=== PATIENT | female | born 1990 | race Caucasian/White ===

== ENCOUNTER → 2020-12-03 16:11 | Outpatient (CLI) | payer OTHER, SELFPAY ==
--- NOTE | ~2020-12-03 | US_ITS ---
EXAMINATION: US OB >= 14 weeks Fetus DATE: 12/03/2020 16:52 INDICATION: survey TECHNIQUE: Multiple obstetric sonographic images performed. FINDINGS: No prior studies for comparison. There is a single living fetus in vertex presentation. The placenta is posterior without placenta pr evia. Placental margin is 3.5 cm to the cervix. Amniotic fluid volume is normal. cardiac activity and movement is noted with a heart rate of 143 beats per minute. The following anatomy was identified as normal: 4 chamber heart 3 vessel cord kidneys urinary bladder stomach spine diaphragm ventricles cisterna magna cerebellum The cavum septum lucidum, ventricular outflow tracts and cord insertion are not adequately visualized . Recommend attention to the structures on subsequent studies. The following biometric data were obtained: BPD: 44mm corresponds to gestational age 19 weeks 3 days. Head circumference: 161 mm corresponds to gestational age 19 weeks 0 days. Abdominal circumference: 140 mm corresponds to gestational age 19 weeks 2 days. Femur length: 28 mm corresponds to gestational age 18 weeks 5 days. Head circumference to abdominal circumference ratio: 1.16 (normal range for expected gestational age is 1.09-1.26). Estimated weight: 271 grams +/- 41 grams using Hadlock method. IMPRESSION: 1: Single living intrauterine with an estimated gestational age of 19weeks 1days by current ultrasound measurements, with an EDC of 04/28/2021 in vertex presentation. 2. The cavum septum lucidum, ventricular outflow tracts and cord insertion are not adequately visual ized. Recommend attention to the structures on subsequent studies. Otherwise, unremarkable surv ey. Reviewed, dictated and finalized at location B. PRESS OPERATOR IMPRESSION: 1: Single living intrauterine with an estimated gestational age of 19 weeks 1days by current ultrasound measurements, with an EDC of 04/28/2021 in ve rtex presentation. 2. The cavum septum lucidum, ventricular outflow tracts and cord insertion are not adequately visualized. Recommend attention to the structures on subsequent studies. Otherwise, unremarkable survey.
== END ==
PROVIDERS: Visit Provider Obstetrics & Gynecology Gynecology
DX: Z36.9 Encounter for antenatal screening, unspecified (principal); Z3A.19 19 weeks gestation of pregnancy
CPT/HCPCS: 76805

== ENCOUNTER → 2020-12-30 10:54 | Outpatient (CLI) | payer OTHER, SELFPAY ==
--- NOTE | ~2020-12-30 | US_ITS ---
EXAMINATION: US OB follow up EXAM DATE: 12/30/2020 11:29 INDICATION: f/u anatomy . 2nd trimester. TECHNIQUE: Pelvic obstetrical transabdominal sonogram was performed by a technologist. There are mu ltiple grayscale and Doppler images available for interpretation. Comparison is made to prior examina tion from 12/03/2020. FINDINGS: There is a single fetus identified in vertex presentation with a heart rate of 149 beats pe r minute. The placenta is located in the posterior position. Placental margin to internal cervical os distance is 3.8 cm. There is no sonographic evidence of retroplacental hemorrhage identified. There is subjectively expected amount of amniotic fluid. BIOMETRIC DATA: Biparietal diameter (BPD): 5.7 cm ----------------> 23 weeks 3 days. Head circumference (HC): 21.1 cm ----------------> 23 weeks 1 day. Abdominal circumference (AC): 18.0 cm ----------> 22 weeks 6 days. Femur length (FL): 4.1 cm --------------------------> 23 weeks 1 day. These measurements are concordant. HC/AC ratio is 1.17 (The 5th -- 95th percentile range is 1.0 5-1. Estimated weight is 556 g +/- 83 g. This is the 59th percentile when the currently reported cl inical gestation age 22 weeks 5 days, clinical estimated date of delivery (EMMANUEL-OPE) 04/30/2021 is used. estimated gestational age based on measurements from this exam is 23 weeks 1 day, with an hector mated date of delivery (EMMANUEL-AUA) 04/27. ANATOMIC SURVEY: The following anatomy is identified and is sonographically normal in appearance: Cerebral ventricles CTL-spine Heart Diaphragm Stomach Kidneys Bladder Cord insertion IMPRESSION: 1. Single fetus in vertex presentation with heart rate 149 beats per minute. 2. Estimated weight of 5 x 6 grams, 59th percentile using the currently reported clinical gest ation age of 22 weeks 5 days, EMMANUEL(OPE) 04/30. 3. Completed anatomic survey, visualization of previously poorly seen. Reviewed, dictated and finalized at location B. R PLANT ENGINEER IMPRESSION: 1. Single fetus in vertex presentation with heart rate 149 beats per minute. 2. Estimated weight of 5 x 6 grams, 59th percentile using the currently reported clinical gestation age of 22 weeks 5 days, EMMANUEL(OPE) 04/30. 3. Completed anatomic survey, visualization of previously poorly seen.
== END ==
PROVIDERS: Visit Provider Obstetrics & Gynecology Gynecology
DX: Z36.2 Encounter for other antenatal screening follow-up (principal); Z3A.00 Weeks of gestation of pregnancy not specified
CPT/HCPCS: 76816

== ENCOUNTER 2021-01-31 09:35 | Outpatient (RCR) | payer OTHER, SELFPAY ==
[2021-01-31 11:29] LABS: Hematocrit 36.1 % (37.0-47.0); Hemoglobin 11.8 g/dL (12.0-15.0)
[2021-01-31 11:51] LABS: Glucose 1 Hour PP 50gm Dose 105 mg/dL
[2021-01-31 12:10] LABS: Vitamin D 25 Hydroxy 46.7 ng/mL
[2021-01-31 12:28] LABS: HIV 1/2 Ab P24 Ag Result Negative (Negative)
[2021-02-01] MEDS: RHO(D) IMMUNE GLOBULIN 300 MCG/2 ML SYRINGE IM (08:50)
== END 2021-05-01 23:59 | disposition home or self-care (01) ==
LOC: ANHLAB 09:35
PROVIDERS: Visit Provider Obstetrics & Gynecology Gynecology
DX: Z29.13 Encounter for prophylactic Rho(D) immune globulin (principal); Z11.4 Encounter for screening for human immunodeficiency virus [HIV]; O36.0920 Maternal care for other rhesus isoimmunization, second trimester, not applicable or unspecified; Z3A.26 26 weeks gestation of pregnancy
CPT/HCPCS: 36415; 82306; 82947; 85014; 85018; 85461; 86703; 90384; 96372; G0432; J2790

== ENCOUNTER → 2021-02-12 11:00 | Outpatient (CLI) | payer OTHER, SELFPAY ==
--- NOTE | ~2021-02-12 | US_ITS ---
EXAMINATION: US OB follow up DATE: 02/12/2021 11:44 INDICATION: Assess growth with large fetus for estimated gestational age during early third [facility] . TECHNIQUE: Real-time ultrasound of the pelvis was performed. The interpreting radiologist was not pre sent for the study. COMPARISON: 12/30/2020 FINDINGS: There is a single living fetus in vertex presentation. The placenta is posterior and not low-lying. heart rate is 139 beats per minute (bpm). The amniotic fluid index is cm, which is normal. Norm al amniotic fluid index of 16.8 cm (5th%-95%: 9.2-23.1 cm at 29 weeks estimated gestational age) The following biometric data were obtained: BPD: 7.6 cm -> 30 weeks 3 days Head circumference: 28.0 cm -> 20 weeks 4 days Abdominal circumference: 27.4 cm -> 31 weeks 3 days Femur length: 6.1 cm -> 31 weeks 6 days These measurements are concordant. Head circumference to abdominal circumference ratio: 1.02 (normal range 0.96-1.17). Estimated weight: 1755 g (+/-) 263 g. or 3 lbs. 14 oz. (+/-) 9 oz. IMPRESSION: 1. Single living fetus in vertex presentation with heart rate of 139 bpm. 2. Normal amniotic fluid index of 16.8 cm. 3. Estimated weight is >97th percentile by Hadlock criteria when 04/30/2021 is used as the estima louie date of delivery (EMMANUEL). This is significantly increased since the prior study at which time the e stimated weight was 59th percentile utilizing the same EMMANUEL. Please correlate with clinical info rmation or earlier ultrasounds for most accurate EMMANUEL. Reviewed, dictated and finalized at location A. IMPRESSION: 1. Single living fetus in vertex presentation with heart rate of 139 bpm. 2. Normal amniotic fluid index of 16.8 cm. 3. Estimated weight is >97th percentile by Hadlock criteria when 04/30/2021 is used as the estimated date of delivery (EMMANUEL). This is significantly increas ed since the prior study at which time the estimated weight was 59th perc entile utilizing the same EMMANUEL. Please correlate with clinical information or ea rlier ultrasounds for most accurate EMMANUEL.
== END ==
PROVIDERS: Visit Provider Obstetrics & Gynecology Gynecology
DX: O36.63X0 Maternal care for excessive fetal growth, third trimester, not applicable or unspecified (principal); Z3A.25 25 weeks gestation of pregnancy
CPT/HCPCS: 76816

== ENCOUNTER 2021-03-03 09:59 | Outpatient (RCR) | payer OTHER, SELFPAY ==
[2021-01-17 13:59] VITALS: BP 129/79; PULSE 90
[2021-03-03 10:34] VITALS: BP 142/76; PULSE 108
== END 2021-04-17 23:59 | disposition home or self-care (01) ==
LOC: ANHOBOP 09:59
PROVIDERS: Visit Provider Obstetrics & Gynecology
DX: O36.8130 Decreased fetal movements, third trimester, not applicable or unspecified (principal); Z3A.31 31 weeks gestation of pregnancy
CPT/HCPCS: 59025

== ENCOUNTER → 2021-04-01 15:52 | Outpatient (CLI) | payer OTHER, SELFPAY ==
--- NOTE | ~2021-04-01 | US_ITS ---
EXAMINATION: US OB follow up DATE: 04/01/2021 16:22 INDICATION: Estimated size greater than expected for estimated [facility] age [facility] TECHNIQUE: Real-time ultrasound of the pelvis was performed. The interpreting radiologist was not pre sent for the study. COMPARISON: 02/12/2021 FINDINGS: There is a single living fetus in vertex presentation. The placenta is posterior fundal and not low- lying. heart rate is 133 beats per minute (bpm). The amniotic fluid index is 15.8 cm, which is normal (5th%-95%: 7.9-24.9 cm at 35 weeks estimated gestational age). The following biometric data were obtained: BPD: 9.3 cm -> 37 weeks 6 days Head circumference: 33.3 cm -> 38 weeks 0 days Abdominal circumference: 32.5 cm -> 36 weeks 3 days Femur length: 7.0 cm -> 36 weeks 0 days These measurements are concordant. Head circumference to abdominal circumference ratio: 1.03 (normal range 0.92-1.05). Estimated weight: 2986 g (+/-) 448 g or 6 lbs. 9 oz. (+/-) 1 lbs. 0 oz. IMPRESSION: 1. Single living fetus in vertex presentation with heart rate of 178 bpm. 2. Normal amniotic fluid index of 15.8 cm. 3. Estimated weight is 72nd percentile by Hadlock criteria when 04/30/2021 is used as the estimat ed date of delivery (EMMANUEL). Please correlate with clinical information or earlier ultrasounds for most accurate EMMANUEL. Reviewed, dictated and finalized at location A. IMPRESSION: 1. Single living fetus in vertex presentation with heart rate of 178 bpm. 2. Normal amniotic fluid index of 15.8 cm. 3. Estimated weight is 72nd percentile by Hadlock criteria when 04/30/2021 is used as the estimated date of delivery (EMMANUEL). Please correlate with clinical information or earlier ultrasounds for most accurate EMMANUEL.
== END ==
PROVIDERS: Visit Provider Obstetrics & Gynecology Gynecology
DX: O36.63X0 Maternal care for excessive fetal growth, third trimester, not applicable or unspecified (principal); Z3A.00 Weeks of gestation of pregnancy not specified
CPT/HCPCS: 76816

== ENCOUNTER 2021-04-25 04:51 | Inpatient (IN) | payer OTHER, SELFPAY ==
[2021-04-25] VITALS (235 sets, daily range): BP systolic 98–162; BP diastolic 56–110; PULSE 85–142; RESP 16–18; TEMP 36.4–36.9; O2SAT 93–100; BMI 39.7
[2021-04-25 05:46] LABS: Basophils Percent Auto 0.3 % (0.2-1.2); Eosinophils Absolute Auto 0.1 K/mm3 (0-0.3); Eosinophils Percent Auto 1.1 % (0-4.4); Hemoglobin 12.6 g/dL (12.0-15.0); Immature Granulocyte Absolute 0.04 K/mm3 (0.00-0.031); Immature Granulocyte Percent A 0.3 % (0-0.5); Lymphocytes Absolute Auto 1.52 K/mm3 (0.9-3.2); Lymphocytes Percent Auto 13.2 % (18.3-44.2); Mean Corpuscular HGB Conc 33.2 g/dl (32-36); Mean Corpuscular Volume 90.5 fl (80-100); Mean Platelet Volume 11.3 fl (7.4-10.4); Monocytes Absolute Auto 0.8 K/mm3 (0.1-0.6); Monocytes Percent Auto 7.1 % (2.6-8.5); Platelet Count Result 210 k/mm3 (150-375); White Blood Count 11.5 K/mm3 (4.5-10.0)
[2021-04-25] MEDS: AMPICILLIN 2 GM/NS 100 ML 2 GM/100 ML BAG IVPB (05:47)
[2021-04-25] MEDS: LACTATED RINGERS 1,000 ML 125 ML IV CONT ×4 (05:48→22:01)
[2021-04-25] MEDS: OXYTOCIN 30 UNITS/NS 500 ML 30 UNITS/500 ML BAG 6 UNITS IV CONT ×2 (05:49→23:39)
--- NOTE | 2021-04-25 06:02 | LDADM ---
This patient, Barbara Reddy, was admitted to Labor/Delivery/Recovery 104 on 04/25/21 at 04:51. Plans for labor, pain management and were discussed with patient. Patient/family oriented to hospital policies and general routines including ID bracelet, bed and alarms, visiting hours, pain management, procedures, bathroom and other care routines, personal items, smoking policy, room service/diet and guest tray routines, infant security routines, and visiting hours. Patient/Family are encouraged to report perceived risks to care and to ask questions if they do not understand what they are told or what they should do. See OBIX for further documentation.
--- NOTE | 2021-04-25 06:24 | P.PNAN_ITS ---
Anes - Eval Pre Procedure Procedure: Labor epidural Date/Time: 04/25/21 06:24 Surgeon: ruth Preop Diagnosis: pain during labor Pre Op Diagnosis: Induction Patient Data Age: 31 Gender: F Height: 1.63 m Weight: 105 kg Last Vital Signs Pulse 97 04/25/21 06:15 BP 153/90 H 04/25/21 06:15 Allergies Allergy/AdvReac Type Severity Reaction Status Date / Time No Known Allergies Allergy Verified 04/12/21 13:38 Home Medications Medication Instructions Recorded Confirmed Type aspirin [Aspirin Low Dose] 81 mg PO DAILY 04/12/21 04/12/21 History ergocalciferol (vitamin D2) 1,250 mcg PO WEEKLY 04/12/21 04/12/21 History [Vitamin D2] metformin 500 mg PO BID 04/12/21 04/12/21 History prenat.vits,em,bys-rich-iguxl 1 tablet PO DAILY 04/12/21 04/12/21 History [ #2] Laboratory Tests 04/25/21 04/25/21 05:35 05:35 WBC 11.5 K/mm3 H K/mm3 (4.5-10.0) RBC 4.20 M/mm3 M/mm3 (4.2-5.4) Hgb 12.6 g/dL g/dL (12.0-15.0) Hct 38.0 % % (37.0-47.0) MCV 90.5 fl fl (80-100) MCH 30.0 pg pg (26-34) MCHC 33.2 g/dl g/dl (32-36) RDW 15.0 % H % (11.5-14.5) Plt Count 210 k/mm3 k/mm3 (150-375) MPV 11.3 fl H fl (7.4-10.4) Immature Gran % (Auto) 0.3 % % (0-0.5) Neut % (Auto) 78.0 % H % (45.5-73.1) Lymph % (Auto) 13.2 % L % (18.3-44.2) [place] % (Auto) 7.1 % % (2.6-8.5) Eos % (Auto) 1.1 % % (0-4.4) Baso % (Auto) 0.3 % % (0.2-1.2) Lymph # (Auto) 1.52 K/mm3 K/mm3 (0.9-3.2) [place] # (Auto) 0.8 K/mm3 H K/mm3 (0.1-0.6) Eos # (Auto) 0.1 K/mm3 K/mm3 (0-0.3) Baso # (Auto) 0.0 K/mm3 K/mm3 (0.0-0.1) Abs Immat Gran (auto) 0.04 K/mm3 H K/mm3 (0.00-0.031) Absolute Neuts (auto) 9.0 K/mm3 H K/mm3 (1.3-6.7) Absolute Nucleated RBC 0.0 K/mm3 K/mm3 (0.0-0.012) Nucleated RBC % 0.0 % % (0.0-0.2) RPR Pending Patient hx anesthesia problems: none Family hx anesthesia problems: none PMFSH Past Medical History Medical History (Updated 04/25/21 @ 06:26 by Karishma Wu CRNA) IUP (intrauterine ), incidental Obesity (BMI 30-39.9) Family History Family History (Updated 04/12/21 @ 13:43 by Jeancarlos Méndez RN) Father Bladder cancer Diabetes mellitus Mother Cervical cancer Diabetes mellitus Grandparent Breast cancer in female Diabetes mellitus Social History Social History Smoking status: Never smoker Substance use: never Spiritual care concerns: No Exam Day of Procedure 04/25/21 06:24
--- NOTE | 2021-04-25 08:11 | WPDOBADMIT ---
Obstetrics - Admit Note Admission Note: record reviewed. No pertinent additions to the history and/or any subsequent changes in the physical findings that are not consistent with the expected course of the were found. AROm clear fluid 1//-3 vertex Additions to the history and/or subsequent changes in the physical findings follow. None.
[2021-04-25] MEDS: AMPICILLIN 1 GM/NS 50 ML 1 GM/50 ML BAG IVPB ×4 (09:55→23:34)
[2021-04-25] MEDS: LABETALOL HCL 100 MG TABLET PO (10:26)
[2021-04-25] MEDS: fentaNYL CITRATE INJ (*CRX) 100 MCG/2 ML VIAL IV PUSH (11:04)
[2021-04-25 11:50] LABS: Rapid Plasma Reagin Non-Reactive (NonReactive)
[2021-04-26] VITALS (130 sets, daily range): BP systolic 77–168; BP diastolic 32–113; PULSE 86–201; RESP 16–18; TEMP 36.4–37.3; O2SAT 83–100
[2021-04-26] MEDS: ONDANSETRON INJ 4 MG/2 ML VIAL IV PUSH (00:11)
[2021-04-26] MEDS: AMPICILLIN 1 GM/NS 50 ML 1 GM/50 ML BAG IVPB (03:58)
[2021-04-26] MEDS: OXYTOCIN 30 UNITS/NS 500 ML 30 UNITS/500 ML BAG 999 UNITS IV CONT (06:45)
--- NOTE | 2021-04-26 06:52 | PM.OBPRVD ---
OB - Delivery Note Procedure Delivery date: 04/26/21 Procedure: events: Labor Induction Intrapartal events: Prolonged Labor > 20 hours and Prolonged Active Phase Induction method: AROM and per pitocin protocol Delivery monitor: external FHT and internal uterine Route of delivery: Laceration Description: Perineal - 2nd Degree Delivery repair: vicryl (3-0) Specimen: No Quantitative Blood Loss (ml): 150 Anesthesia type: Local Disposition: floor Narrative: Patient labor stalled at 5 cm for several hours and decided to proceed with csection after [address] to hospital, patient felt more pressure and was checked and 6 cm. Allowed patient to continue labor and progressed slowly to complete. No shoulder dystocia. head with 5 cm caput on side of head. [place] Baby Date of : 04/26/21 Weeks of gestation at delivery: 39 gender: Female Weight (pounds): 8 Weight (ounces): 10 presentation: vertex position: Left Occiput Anterior Placenta delivery description: Spontaneous cord vessel description: 3 Vessels score one minute: 7 score five minutes: 9
--- NOTE | 2021-04-26 07:00 | PM.OBDSVD ---
DS: Admitting Diagnosis Admitting Diagnosis Admitting Diagnosis: IUP 39 DS: Discharge Diagnosis Discharge Diagnosis (1) 39 weeks gestation of : Code(s): Z3A.39 - 39 weeks gestation of Status: Acute (2) (normal spontaneous vaginal delivery): Code(s): O80 - Encounter for full-term uncomplicated delivery Status: Acute (3) PIH ( induced hypertension): Code(s): O13.9 - Gestational [-induced] hypertension without significant proteinuria, unspecified trimester Status: Acute OB - DS: Summary OB Procedures : Ultrasound OB Procedures Intrapartum: Spontaneous Vag Delivery OB Procedures: : None Peripartum Data Delivery Method: Natural Vaginal Laceration Description: Perineal - 2nd Degree complications: none Status at Discharge Functional status at discharge: independent ambulation Overall status at discharge: patient is progressing back to baseline Time Spent with Patient Time attestation: Total time spent providing and/or coordinating discharge services: DS: Data Data Completed and Pending Labs on day of discharge: Labs from last 24 hours 04/25/21 04/25/21 05:35 05:35 RPR Non-reactive Blood Type O Negative Antibody Screen Negative Discharge Plan Discharge Attending physician on discharge: Claudia Gann Discharging Clinician: Heber Michaels Patient Disposition: Home, Self-Care Activity: may shower and pelvic rest Diet: regular Patient Instructions: Antibiotic Form Stand Alone Forms: General Discharge Information Follow-up/Referrals: Claudia Gann MD [Physician] - 6 Weeks Discharge Medications: New labetalol 100 mg Tablet 200 mg PO Q12HR Qty: 60 RF: 1 Continued metformin 500 mg Tablet 500 mg PO BID RF: 0 ergocalciferol (vitamin D2) [Vitamin D2] 1,250 mcg (50,000 unit) Capsule 1,250 mcg PO WEEKLY RF: 0 prenat.vits,em,szy-fpay-zjecr Tablet 1 tablet PO DAILY RF: 0 Discontinued aspirin [Aspirin Low Dose] 81 mg Tablet,Delayed Release (Dr/Ec) 81 mg PO DAILY RF: 0 Date of admission: 04/25/21 04:51 Primary Care Provider: PHYSICIAN,CERTIFIED PHLEBOTOMY TECHNICIAN Admitting Provider: Claudia Gann Attending physician on admission: Claudia Gann Condition: Stable
[2021-04-26] MEDS: OXYTOCIN 30 UNITS/NS 500 ML 30 UNITS/500 ML BAG 125 UNITS IV CONT (07:23)
[2021-04-26] MEDS: IBUPROFEN 600 MG TABLET PO ×2 (08:07→15:38)
[2021-04-26] MEDS: WITCH HAZEL 40 PADS 1 PAD TOPICAL (09:29)
[2021-04-26 09:30] LABS: Hemoglobin 12.3 g/dL (12.0-15.0); Mean Corpuscular HGB Conc 32.4 g/dl (32-36); Mean Corpuscular Hemoglobin 29.4 pg (26-34); Mean Corpuscular Volume 90.7 fl (80-100); Mean Platelet Volume 11.3 fl (7.4-10.4); Platelet Count Result 192 k/mm3 (150-375); Red Blood Count 4.19 M/mm3 (4.2-5.4); Red Cell Distribution Width 15.2 % (11.5-14.5); White Blood Count 24.2 K/mm3 (4.5-10.0)
[2021-04-26] MEDS: LABETALOL HCL 100 MG TABLET 200 MG PO ×2 (09:44→21:07)
[2021-04-26 10:18] LABS: Alanine Aminotransferase 17 U/L (4-35); Alkaline Phosphatase 142 U/L (38-126); Anion Gap 7 mmol/L (8-16); Aspartate Amino Transferase 34 U/L (14-36); Bilirubin,Total 0.5 mg/dL (0.2-1.3); Blood Urea Nitrogen 9 mg/dL (7-17); Calcium 9.2 mg/dL (8.4-10.2); Carbon Dioxide 21 mmol/L (22-30); Chloride 107 mmol/L (98-107); Estimated CRCL calculation 105 ml/min; Estimated Glomerular Filt Rate > 60; Glucose 135 mg/dL (65-105); Potassium 3.9 mmol/L (3.4-5.0); Sodium 135 mmol/L (137-145); Uric Acid 7.3 mg/dL (2.5-7.5)
--- NOTE | 2021-04-26 12:46 | OBPPTRN ---
0950-Patient transferred to post room #280 via wheelchair. Support person present. Oriented to unit, room, information board, rooming in, admission packet and security measures. Patient verbalizes understanding.
[2021-04-27 03:30] VITALS: BP 118/66; PULSE 98; RESP 16; TEMP 36.4; O2SAT 95
[2021-04-27 04:10] LABS: Hematocrit 32.7 % (37.0-47.0); Hemoglobin 10.4 g/dL (12.0-15.0)
[2021-04-27 07:25] VITALS: BP 109/55; PULSE 102; RESP 16; TEMP 36.8; O2SAT 100
--- NOTE | 2021-04-27 07:47 | PM.OBPNVD ---
OB - PN: Subj Subjective Date/time seen: 04/27/21 07:47 doing well some mild back pain otherwise no Headaches or vision changes OB - PN: Obj Data Labs CBC & Chem 7: 04/27/21 03:41 04/26/21 09:17 Labs: Laboratory Results - last 24 hr 04/26/21 04/26/21 04/27/21 09:17 09:17 03:40 WBC 24.2 H RBC 4.19 L Hgb 12.3 Hct 38.0 MCV 90.7 MCH 29.4 MCHC 32.4 RDW 15.2 H Plt Count 192 MPV 11.3 H Sodium 135 L Potassium 3.9 Chloride 107 Carbon Dioxide 21 L Anion Gap 7 L BUN 9 Creatinine 0.80 Estim Creat Clear Calc 105 Estimated GFR > 60 Glucose 135 H Uric Acid 7.3 Calcium 9.2 Total Bilirubin 0.5 AST 34 ALT 17 Alkaline Phosphatase 142 H Total Protein 6.0 L Albumin 3.0 L Blood Type O Negative Antibody Screen TNP Screen Negative Baby's Blood Type A pos Baby's DANIELA Negative Doses of RhIg Required 1 04/27/21 03:41 WBC RBC Hgb 10.4 L Hct 32.7 L MCV MCH MCHC RDW Plt Count MPV Sodium Potassium Chloride Carbon Dioxide Anion Gap BUN Creatinine Estim Creat Clear Calc Estimated GFR Glucose Uric Acid Calcium Total Bilirubin AST ALT Alkaline Phosphatase Total Protein Albumin Blood Type Antibody Screen Screen Baby's Blood Type Baby's DANIELA Doses of RhIg Required OB - PN A/P Assessment and Plan (1) (normal spontaneous vaginal delivery): Code(s): O80 - Encounter for full-term uncomplicated delivery Status: Acute Assessment and Plan: continue with pp care (2) Obesity (BMI 30-39.9): Code(s): E66.9 - Obesity, unspecified Status: Acute (3) PIH ( induced hypertension): Code(s): O13.9 - Gestational [-induced] hypertension without significant proteinuria, unspecified trimester Status: Acute Assessment and Plan: bps improved with labetalol will decrease dose to 100 mg po twice a day Time Spent With Patient Time: Total time spent is greater than 50% in coordination of care (as documented) at patient's floor/unit and/or counseling patient: Exam Narrative: Exam Narrative: ff @ umbilicus
[2021-04-27 08:52] VITALS: PULSE 102
[2021-04-27] MEDS: metFORMIN HCL 500 MG TABLET PO ×2 (08:52→17:16)
[2021-04-27] MEDS: LABETALOL HCL 100 MG TABLET PO ×2 (08:52→23:59)
[2021-04-27] MEDS: MULTIVIT/MIN/PREN/FOL AC/IRON TABLET 1 TAB PO (08:52)
--- NOTE | 2021-04-27 10:00 | WPDANLDPN2 ---
Anes-Prog Note L&D Date/Time: 04/27/21 10:00 Comfortable throughout: labor Neuraxial method: epidural Epidural/Spinal procedure site: clean & non-tender Neuro status: Neuro function grossly intact. Cardiovascular status: normal Respiratory status: normal Airway patency: baseline Mental status: baseline Post-Op hydration status: normal Vital Signs: Last Vital Signs Temp 36.8 C 04/27/21 07:25 Pulse 102 H 04/27/21 08:52 Resp 16 04/27/21 07:25 BP 109/55 L 04/27/21 07:25 Pulse Ox 100 04/27/21 07:25 Pain score (VAS): 0/10. Patient resting up to bedside chair at time of assessment, appears comfortable. Support person at bedside. I/O: Intake & Output 04/26/21 04/27/21 04/27/21 23:59 07:59 15:59 Intake Total 600 100 120 Output Total 600 480 Balance 0 -380 120 Post-procedural complaints: none Patient feedback: Patient satisfied with anesthetic care.
[2021-04-27] MEDS: RHO(D) IMMUNE GLOBULIN 300 MCG/2 ML SYRINGE IM (14:30)
[2021-04-27 14:48] VITALS: BP 116/80; PULSE 104; RESP 16; TEMP 36.9; O2SAT 100
[2021-04-27] MEDS: DOCUSATE SODIUM 100 MG CAPSULE PO (17:16)
[2021-04-27 19:25] VITALS: BP 140/82; PULSE 108; RESP 16; TEMP 36.9; O2SAT 98
[2021-04-27 23:55] VITALS: BP 114/48; PULSE 102; RESP 16; TEMP 37; O2SAT 99
[2021-04-28] MEDS: IBUPROFEN 600 MG TABLET PO ×2 (00:11→07:36)
--- NOTE | 2021-04-28 00:23 | PC.NURSE ---
04/28/2021 I entered mother's room and she had baby in the plastic bassinet removed from the bassinet's cart lying on her lap with baby inside. I cautioned mother not to pick baby up this way, as it increases the chances of dropping baby. I placed baby and the top part of the bassinet back on the bassinet cart and reinforced to mother to please call out and I will be more than happy to get baby out of the bassinet and hand her the baby. Mother agreed and continued with, Yes, and I can always wake him (referring to her ) too. I told her I would be available all night to hand her baby.
[2021-04-28 00:25] VITALS: BP 136/79
[2021-04-28 04:20] VITALS: BP 136/90; PULSE 94; RESP 16; O2SAT 97
[2021-04-28] MEDS: MULTIVIT/MIN/PREN/FOL AC/IRON TABLET 1 TAB PO (07:35)
[2021-04-28] MEDS: DOCUSATE SODIUM 100 MG CAPSULE PO (07:36)
[2021-04-28] MEDS: metFORMIN HCL 500 MG TABLET PO (07:38)
--- NOTE | 2021-04-28 07:50 | PC.NURSE ---
Mother called out for assist with feeding. Mother reports infant was not eagerly first 12 hours, she began supplementing and pumping. is more awake the last 12 hours and will eagerly latch, feedings are from 10-30 minutes. Mother still has concerns is not feeding well enough to stop supplementation due to fussiness after . Mother will continue to supplement until her milk is in. Mother's plan is to discontinue supplement once her milk is in. Discussed milk supply, colostrum transitioning to breastmilk for first time mother. Discussed infant is now receiving larger volumes of intake with supplementation and may not be satisfied until milk transitions in to the amount infant is accustom to as intake. Suggested mother put infant to both breasts each feeding then pace feed supplement and stop when infant is satisfied. Mother has a double electric pump for home use. Advised to continue to pump if infant does not have an effective feeding every three hours. Reviewed infant feeding cues, frequencies, duration of feedings, feeding elimination flow sheet, and signs of adequate intake. Demonstrated stimulation techniques to wake infant for feeding. Reviewed positioning/alignment in cross cradle, holding breast in ?U? hold and guided asymmetrical latch on. Infant able to latch correctly. nursed eagerly with steady draws for bursts followed by long pausing occasional swallowing noted. Reviewed signs of a correct latch, effective nursing and suck swallow ratio. Suggested mother stimulate while feeding to increase stimulate, increase intake and to assist with maintaining deep latch. Discussed the difference of effective vs ineffective nursing and the importance of stimulation to keep infant awake nursing effectively. would slip to shallow latch, mother reports tenderness. Demonstrated how to adjust latch more deeply while feeding. Mother reports she can feel change in latch and has no tenderness. Nipple care reviewed of lanolin after feedings, warm compresses as needed. Mother is able to independently latch with appropriate positioning/alignment. She denies any nipple discomfort, is feeding as required and waking to feed if needed. Infant has had several effective feedings in the past 24 hours followed with supplementation, and is currently meeting outcomes for weight, output, jaundice and feeding frequencies. Mother states she feels confident to continue current feeding plan at home at home. Reviewed transition to breast milk, signs of adequate intake, and engorgement/relief. Instructed to call ICP if intake/output less than required. Reviewed regular medications mother is taking. Information provided per Fl[place]. Reviewed community resources on the [facility] website and in the Mom/Baby guide. Information on outpatient services provided. Mother has no further questions at this time.
--- NOTE | 2021-04-28 08:07 | PM.OBPNVD ---
OB - PN: Subj Subjective Date/time seen: 04/28/21 08:07 Patient comments: no complaints and pain well controlled baby status: doing well and nursing well OB - PN: Obj Data Labs CBC & Chem 7: 04/27/21 03:41 04/26/21 09:17 Labs: Laboratory Results - last 24 hr 04/27/21 03:40 Blood Type O Negative Antibody Screen TNP Screen Negative Baby's Blood Type A pos Baby's DANIELA Negative Doses of RhIg Required 1 OB - PN A/P Plan day: 2 Plan: routine care, discharge home and follow up 6 weeks Time Spent With Patient Time: Total time spent is greater than 50% in coordination of care (as documented) at patient's floor/unit and/or counseling patient: Exam Narrative: Exam Narrative: fundus firm,nt
[2021-04-28 09:00] VITALS: PULSE 88
[2021-04-28] MEDS: LABETALOL HCL 100 MG TABLET PO (09:00)
--- NOTE | 2021-04-28 11:18 | PC.NURSE ---
0900 Patient viewed the discharge video Mother & Baby Care, The First Two Weeks . Patient was given the opportunity and encouraged to ask questions. Patient verbalized understanding of information shared and has been given the mother/baby guide for home reference.
[2021-04-29 07:49] VITALS: BP 139/71; PULSE 101; RESP 20; TEMP 36.9; O2SAT 100
== END 2021-04-28 11:00 | disposition home or self-care (01) | DRG 807 ==
LOC: ANHLDR 04-26 07:04 → ANHOB2 04-26 10:05
PROVIDERS: Obstetrics & Gynecology; Admitting Provider Obstetrics & Gynecology Gynecology; Visit Provider Obstetrics & Gynecology Gynecology
DX: O99.824 Streptococcus B carrier state complicating childbirth (principal); Z37.0 Single live birth; Z3A.39 39 weeks gestation of pregnancy; O36.8330 Maternal care for abnormalities of the fetal heart rate or rhythm, third trimester, not applicable or unspecified; O70.1 Second degree perineal laceration during delivery; O63.0 Prolonged first stage (of labor); O99.214 Obesity complicating childbirth; E66.9 Obesity, unspecified; O13.4 Gestational [pregnancy-induced] hypertension without significant proteinuria, complicating childbirth
CPT/HCPCS: 36415; 80053; 84550; 85014; 85018; 85025; 85027; 85461; 86592; 86850; 86900; 86901; 90384; A9270; J0290; J2405; J2590; J2790; J2795; J3010; J7120

== ENCOUNTER 2021-05-07 11:58 | Outpatient (RCR) | payer OTHER, SELFPAY ==
--- NOTE | 2021-05-07 12:15 | PCDIET ---
IN 1105 OUT 1210 HISTORY: Pt. delivered at [facility] at 39 weeks. had no complications after delivery. Mother had no complications after delivery. is now 11 days old. Infant appears to be well cared for. Infant has been seen by ICP as scheduled. Infant last seen by ICP at 1 week. Mother reports: Latch on issues with Left breast, mother makes several attempts each feeding, has inconsistent latch on left frequently refusing. Infant eagerly latches to right, nursing approximately 15 minutes each feeding. is not satisfied after feeding, mother will give 40 ml of EBM/formula after each feeding. Mother pumps both breasts using a double electric pump, mother reports up to 1 oz of EBM per day. Mother has a HX of PCOS and slight asymmetry. Mother reports feedings take up to 1 hour, she will pump 1 hour after infant is bottle fed. Mother is waking infant to feed every 2-3 hours, is freq. sleepy and spends 15-20 minutes waking infant for feeding. Mother wishes: More consistent latching on both breasts and to increase milk supply with less pumping and supplementation. OBSERVATION: Currently at 6+ wets per day and 4+ yellow seedy stools per day. weight: 8#10 Discharge weight: Last Weight: 8#9 at 1 week Mother wishes to start with left breast. Right breast is slightly small than right and nipple rolls to underside of breast. Assisted with a small roll under breast to assist with moving nipple forward and assisted mother with U hold to continue to roll nipple up and in front of infant. Reviewed positioning/alignment, holding breast and asymmetrical latch on. was able to latch correctly. Infant nursed eagerly, with steady draws and frequent swallowing noted for 15 minutes. Reviewed signs of a correct latch, effective nursing and suck swallow ratio. was able to maintain latch without discomfort to mother. Mother reports infant latched quickly and recognizes steps to assist infant with deep latch. Mother independently latched infant deeply to right breast. nurses eagerly with occasional swallowing noted. sleepy on this breast, needing stimulation to keep awake and nursing, infant nurses aprox. 15 minutes on right. Pre feeding weight: 3940 Post feeding weight: 3959 Suggested feeding plan is to put infant to both breasts each feeding for 15 minutes, then supplement as much as desires. Mother will then pump both breasts for 15 minutes. Mother will feed if she wakes or wake by 4 hours. Reviewed may not be ready to feed at 2-3 hours on current feeding schedule. If mother allows to wake she may participate with feeding showing feeding cues and mother will not have to spend the 20 minutes waking to feed. New suggested pumping schedule will allow breasts to refill for next feeding. Worked with mother's pump for correct flange size and pump draw. PLAN: Mother will follow above feeding plan for the next 5 days. Mother will return for pre post feeding evaluation. Mother will call with further questions or concerns. Follow up visit scheduled for Saturday 05/12 @ 1000.
== END 2021-06-03 09:57 | disposition home or self-care (01) ==
LOC: ANHOBOP 11:58
PROVIDERS: Visit Provider Obstetrics & Gynecology Gynecology
DX: Z39.1 Encounter for care and examination of lactating mother (principal)
CPT/HCPCS: 99212; G0463

== ENCOUNTER → 2023-06-03 15:10 | Outpatient (CLI) | payer OTHER, SELFPAY ==
--- NOTE | ~2023-06-03 | US_ITS ---
Pelvic ultrasound. Clinical History: First trimester , uncertain dates Technique: Realtime transabdominal and transvaginal scanning of the pelvis was performed. Color flow Doppler and Doppler spectral analysis were performed. Findings: The uterus is anteverted, and contains an intrauterine gestation. [place]-rump length of 2 cm corresponds to an estimated gestational age of 8 weeks 4 days. heart rate is 167 bpm. Neither ovary seen. No adnexal mass seen. There is no evidence of free fluid in the cul de sac. Impression: Live intrauterine gestation with estimated gestational age of 8 weeks 4 days. heart rate is 167 bpm. Reviewed, dictated and finalized at location . Impression: Live intrauterine gestation with estimated gestational age of 8 weeks 4 days. F etal heart rate is 167 bpm.
== END ==
PROVIDERS: PCP Advanced Practice Midwife; Visit Provider Advanced Practice Midwife
DX: Z36.87 Encounter for antenatal screening for uncertain dates (principal); Z3A.08 8 weeks gestation of pregnancy
CPT/HCPCS: 76817

== ENCOUNTER → 2023-08-16 15:49 | Outpatient (CLI) | payer BC, SELFPAY ==
--- NOTE | ~2023-08-16 | US_ITS ---
EXAMINATION: US OB /maternal detail DATE: 08/16/2023 16:19 INDICATION: Encounter for screening. TECHNIQUE: Real-time ultrasound of the pelvis was performed. COMPARISON: Ultrasound 06/03/2023 FINDINGS: There is a single living fetus in breech presentation. The placenta is anterior, 5.2 cm from the cer vix. heart rate is 150 beats per minute (bpm). The cervical length is 3.4 cm on transabdominal images, which is normal. The amniotic fluid volume is subjectively normal. The following biometric data were obtained: Biparietal diameter (BPD): 4.6 cm; head circumference (HC): 16.6 cm; abdominal circumference (AC): 13 .6 cm; femur length (FL): 2.5 cm. These measurements are concordant. As single measurements, these parameters are each equal to the following estimated gestational ages: BPD: 19 weeks 6 days. HC: 19 weeks 2 days. AC: 19 weeks 0 days. FL: 17 weeks 3 days. estimated gestational age based solely on measurements from this exam is 18 weeks 6 days +/- 1 weeks 2 days. The cerebral ventricles, cerebellum, cisterna magna, nuchal fold, and visualized portions of the spin e are normal. The four-chamber heart view is normal. The ventricular outflow tracts are not well visu alized. The diaphragm, stomach, kidneys, and bladder are normal. There are two umbilical arteries to yield a 3-vessel cord. The cord insertion is normal. IMPRESSION: 1. Single living fetus in breech presentation. 2. Estimated weight is 240 g +/- 36 g, which correlates with the 13th percentile when 01/09/24 is used as estimated date of delivery. This date was set by ultrasound on 06/03/2023. 3. Normal anatomic survey. Ventricular outflow tracts of the heart not well visualized. Reviewed, dictated and finalized at location E. IMPRESSION: 1. Single living fetus in breech presentation. 2. Estimated weight is 240 g +/- 36 g, which correlates with the 13th pe rcentile when 01/09/24 is used as estimated date of delivery. This date was set by ultrasound on 06/03/2023. 3. Normal anatomic survey. Ventricular outflow tracts of the heart not we ll visualized.
== END ==
PROVIDERS: PCP Advanced Practice Midwife; Visit Provider Advanced Practice Midwife
DX: Z36.9 Encounter for antenatal screening, unspecified (principal); Z3A.18 18 weeks gestation of pregnancy
CPT/HCPCS: 76805

== ENCOUNTER → 2023-09-10 10:34 | Outpatient (CLI) | payer BC, SELFPAY ==
--- NOTE | ~2023-09-10 | US_ITS ---
EXAMINATION: US OB follow up DATE: 09/10/2023 11:16 INDICATION: Encounter for other screening follow-up. TECHNIQUE: Real-time ultrasound of the pelvis was performed. COMPARISON: Ultrasound 08/16/2023, 06/03/2023 FINDINGS: There is a single living fetus in vertex presentation. The placenta is anterior, greater than 10 cm from the cervix. heart rate is 152 beats per minute (bpm). The amniotic fluid volume is subject ively normal. The following biometric data were obtained: Biparietal diameter (BPD): 5.7 cm; head circumference (HC): 20.9 cm; abdominal circumference (AC): 18 .8 cm; femur length (FL): 4.1 cm. These measurements are concordant. Estimated weight is 594 g +/- 89 g, which correlates with the 78th percentile when 01/09/24 is u sed as estimated date of delivery. As single measurements, these parameters are each equal to the following estimated gestational ages: BPD: 23 weeks 3 days. HC: 23 weeks 0 days. AC: 23 weeks 4 days. FL: 23 weeks 3 days. estimated gestational age based solely on measurements from this exam is 23 weeks 3 days +/- 1 weeks 4 days. The cerebral ventricles, cerebellum, cisterna magna, and visualized portions of the spine are normal. The heart is normal. The diaphragm, stomach, kidneys, and bladder are normal. There are two umbilica l arteries to yield a 3-vessel cord. The cord insertion is normal. IMPRESSION: 1. Single living fetus in vertex presentation. 2. Estimated weight is 594 g +/- 89 g, which correlates with the 78th percentile when 01/09/24 is used as estimated date of delivery. This date was set by ultrasound on 06/03/2023. 3. Normal anatomic survey. Reviewed, dictated and finalized at location A. ER TRAP IMPRESSION: 1. Single living fetus in vertex presentation. 2. Estimated weight is 594 g +/- 89 g, which correlates with the 78th pe rcentile when 01/09/24 is used as estimated date of delivery. This date was set by ultrasound on 06/03/2023. 3. Normal anatomic survey.
== END ==
PROVIDERS: PCP Advanced Practice Midwife; Visit Provider Advanced Practice Midwife
DX: Z36.2 Encounter for other antenatal screening follow-up (principal)
CPT/HCPCS: 76816

== ENCOUNTER 2023-10-17 10:31 | Outpatient (NON) | payer BC, SELFPAY ==
[2023-10-17 10:48] VITALS: BMI 57.5
[2023-10-17 11:13] LABS: Collection Time Urine 24 HOURS
[2023-10-17 11:19] LABS: Total Volume 24 Hour Urine 1850 ml
[2023-10-17 11:27] LABS: Creatinine Clearance Urine 173.1 ml/min (75-125); Creatinine Urine 94.5 mg/dL; Patient Weight 335 Lbs; Total Protein Urine 24 Hr 166 mg/24hr (28-141); Total Protein Urine Random 9 mg/dL
== END 2023-10-17 10:32 | disposition home or self-care (01) ==
PROVIDERS: Visit Provider Advanced Practice Midwife
DX: O13.9 Gestational [pregnancy-induced] hypertension without significant proteinuria, unspecified trimester (principal); Z3A.00 Weeks of gestation of pregnancy not specified
CPT/HCPCS: 81050; 82575; 84156

== ENCOUNTER 2023-10-17 12:17 | Outpatient (RCR) | payer BC, SELFPAY ==
[2023-10-15] VITALS (9 sets, daily range): BP systolic 113–141; BP diastolic 62–84; PULSE 91–108; RESP 18; TEMP 36.4; BMI 57.5
[2023-10-15 11:25] LABS: Basophils Percent Auto 0.2 % (0.2-1.2); Eosinophils Absolute Auto 0.1 K/mm3 (0-0.3); Eosinophils Percent Auto 1.2 % (0-4.4); Hematocrit 35.4 % (37.0-47.0); Hemoglobin 11.3 g/dL (12.0-15.0); Immature Granulocyte Absolute 0.07 K/mm3 (0.00-0.031); Immature Granulocyte Percent A 0.6 % (0-0.5); Lymphocytes Absolute Auto 1.44 K/mm3 (0.9-3.2); Lymphocytes Percent Auto 12.9 % (18.3-44.2); Mean Corpuscular HGB Conc 31.9 g/dl (32-36); Mean Corpuscular Hemoglobin 28.8 pg (26-34); Mean Corpuscular Volume 90.3 fl (80-100); Mean Platelet Volume 10.8 fl (7.4-10.4); Monocytes Absolute Auto 0.7 K/mm3 (0.1-0.6); Monocytes Percent Auto 6.2 % (2.6-8.5); Neutrophils Absolute Auto 8.8 K/mm3 (1.3-6.7); Neutrophils Percent Auto 78.9 % (45.5-73.1); Platelet Count Result 215 k/mm3 (150-375); Red Blood Count 3.92 M/mm3 (4.2-5.4); Red Cell Distribution Width 15.1 % (11.5-14.5); White Blood Count 11.2 K/mm3 (4.5-10.0)
[2023-10-15 11:42] LABS: Appearance Urine Clear (Clear); Bacteria Urine Rare /hpf; Bilirubin Urine Negative (Negative); Blood Urine 1+ (Negative); Color Urine Yellow (Yellow); Glucose Urine UA Negative (Negative); Ketones Urine Negative (Negative); Leukocyte Esterase Ur Negative LEU/UL (Negative); Nitrate Urine Negative (Negative); Non Pathogenic Casts 0-2; Protein Urine Trace mg/dL (Negative); Specific Grav Ur 1.026 (1.001-1.035); Squamous Epithelial Cell Urine Occasional /hpf (Few); WBC Urine 0-5 /hpf; pH Urine 5.5 (5.0-9.0)
[2023-10-15 11:42] LABS: Creatinine Urine 180.7 mg/dL
[2023-10-15 11:54] LABS: Add Urine Microscopic? YES
[2023-10-15 12:00] LABS: Alanine Aminotransferase 14 U/L (6-35); Albumin Level 3.3 g/dL (3.5-5.1); Alkaline Phosphatase 79 U/L (38-126); Anion Gap 9 mmol/L (8-16); Aspartate Amino Transferase 16 U/L (14-36); Bilirubin,Total 0.3 mg/dL (0.2-1.3); Blood Urea Nitrogen 8 mg/dL (7-17); Calcium 9.1 mg/dL (8.4-10.2); Carbon Dioxide 22 mmol/L (22-30); Chloride 104 mmol/L (98-107); Estimated CRCL calculation 197 ml/min; Estimated Glomerular Filt Rate > 60; Glucose 94 mg/dL (65-110); Potassium 3.9 mmol/L (3.4-5.0); Sodium 135 mmol/L (137-145); Uric Acid 5.6 mg/dL (2.5-7.5)
[2023-10-15 12:12] LABS: Total Protein Urine Random < 5 mg/dL; Ur Ttl Prot Creatinine Ratio < 0.03 mg/mg (0-0.20)
[2023-10-15 12:15] LABS: HIV 1/2 Ab P24 Ag Result Negative (Negative)
--- NOTE | 2023-10-15 12:39 | PC.NURSE ---
Marvin Negron CNM informed of BP's, lab results, and NST at 27 5/7 wks with 10 beat accels. CNM wants a growth U/S and pt to do a 24 hr urine collection at home. CNM doesn't want Rhogam given until pt is 28 wks. Pt to do 24 hr urine collection starting in the morning and return on the 24th and receive Rhogam then. To call with U/S report.
[2023-10-15 12:40] LABS: Glucose 1 Hour PP 50gm Dose 128 mg/dL
--- NOTE | 2023-10-15 14:59 | PC.NURSE ---
Marvin CORREIAM returned page and informed of U/S report. OK to discharge to home. Pt to start 24 hr urine in am and return on 10/17 and receive Rhogam then also.
--- NOTE | ~2023-10-17 | US_ITS ---
EXAMINATION: US OB follow up DATE: 10/15/2023 14:15 INDICATION: Estimated weight and amniotic fluid index assessment during second trimester pregna ncy TECHNIQUE: Real-time ultrasound of the pelvis was performed. The interpreting radiologist was not pre sent for the study. COMPARISON: 09/10/2023 FINDINGS: There is a single living fetus in variable presentation. The placenta is anterior. ca rdiac activity and movement are noted. heart rate is 148 beats per minute (bpm). The amni otic fluid index is 20.3 cm which is normal (normal range: 9.5 cm to 22.6 cm). The following biometric data were obtained: Biparietal diameter (BPD): 7.1 cm; head circumference (HC): 26.0 cm; abdominal circumference (AC): 23 .8 cm; femur length (FL): 5.2 cm. These measurements are concordant. Estimated weight is 1157 g +/- 173 g, which correlates with the 48th percentile when 01/09/2024 is used as estimated date of delivery. As single measurements, these parameters are each equal to the following estimated gestational ages w ith ranges of +/- 2 standard deviations: BPD: 28 weeks 4 days +/- 2 weeks 1 days. HC: 28 weeks 2 days +/- 2 weeks 0 days. AC: 28 weeks 1 days +/- 2 weeks 1 days. FL: 27 weeks 4 days +/- 2 weeks 1 days. estimated gestational age based solely on measurements from this exam is 28 weeks 1 days +/- 2 weeks 0 days. IMPRESSION: 1. Single living fetus in variable presentation. 2. Estimated weight is 1157 g +/- 173 g, which correlates with the 48th percentile when 01/09/20 24 is used as estimated date of delivery. 3. Normal amniotic fluid index. Reviewed, dictated and finalized at location B. RONMENTAL SCIENCE TECHNICIAN IMPRESSION: 1. Single living fetus in variable presentation. 2. Estimated weight is 1157 g +/- 173 g, which correlates with the 48th p ercentile when 01/09/2024 is used as estimated date of delivery. 3. Normal amniotic fluid index.
[2023-10-17] MEDS: RHO(D) IMMUNE GLOBULIN 300 MCG/2 ML SYRINGE IM (10:57)
== END 2023-10-17 12:18 | disposition home or self-care (01) ==
LOC: ANHOBOP 12:17
PROVIDERS: Visit Provider Advanced Practice Midwife
DX: Z11.4 Encounter for screening for human immunodeficiency virus [HIV] (principal); Z29.13 Encounter for prophylactic Rho(D) immune globulin; O36.0190 Maternal care for anti-D [Rh] antibodies, unspecified trimester, not applicable or unspecified; Z3A.00 Weeks of gestation of pregnancy not specified
CPT/HCPCS: 36415; 59025; 76816; 80053; 81001; 81050; 82570; 82575; 82607; 82947; 84156; 84550; 85025; 85461; 86703; 86850; 86900; 86901; 90384; 96372; 99199; G0432; J2790

== ENCOUNTER 2023-12-09 14:50 | Outpatient (CLI) | payer BC, SELFPAY ==
--- NOTE | ~2023-12-09 | US_ITS ---
EXAMINATION: US OB follow up DATE: 12/09/2023 15:18 INDICATION: Reassess growth during third trimester . TECHNIQUE: Real-time ultrasound of the pelvis was performed. The interpreting radiologist was not pre sent for the study. COMPARISON: None. FINDINGS: There is a single living fetus in vertex presentation. The placenta is anterior and not low-lying. F etal heart rate is 150 beats per minute (bpm). The amniotic fluid index is 82.1 cm, which is normal (5th%-95%: 7.9-24.9 cm at 35 weeks estimated gestational age). The following biometric data were obtained: BPD: 9.1 cm -> 36 weeks 5 days Head circumference: 33.1 cm -> 37 weeks 5 days Abdominal circumference: 34.6 cm -> 38 weeks 4 days Femur length: 6.9 cm -> 35 weeks 3 days Femur length to abdominal circumference ratio of 19.98 is slightly below the normal range 20.0-24.0. These measurements are otherwise concordant. Head circumference to abdominal circumference ratio: 0.96 (normal range 0.92-1.05). Estimated weight: 3231 g (+/-) 485 g or 7 lbs. 2 oz. (+/-) 1 lb. 1 oz. IMPRESSION: 1. Single living fetus in vertex presentation with heart rate of 150 bpm. 2. Normal amniotic fluid index of 22.1. 3. Estimated weight is 93rd percentile by Hadlock criteria when 01/09/2024 is used as the estima louie date of delivery (EMMANUEL). Please correlate with clinical information or earlier ultrasounds for mos t accurate EMMANUEL. 4. Femur length to abdominal circumference ratio slightly below the normal range. Reviewed, dictated and finalized at location A. T RELATIONS EXECUTIVE IMPRESSION: 1. Single living fetus in vertex presentation with heart rate of 150 bpm. 2. Normal amniotic fluid index of 22.1. 3. Estimated weight is 93rd percentile by Hadlock criteria when 01/09/2024 is used as the estimated date of delivery (EMMANUEL). Please correlate with clinica l information or earlier ultrasounds for most accurate EMMANUEL. 4. Femur length to abdominal circumference ratio slightly below the normal rang e.
== END 2023-12-09 14:51 ==
LOC: MICIMG 14:51
PROVIDERS: PCP Advanced Practice Midwife; Visit Provider Advanced Practice Midwife
DX: O36.63X0 Maternal care for excessive fetal growth, third trimester, not applicable or unspecified (principal)
CPT/HCPCS: 76816

== ENCOUNTER 2024-01-01 07:30 | Outpatient (RCR) | payer BC, SELFPAY ==
[2023-10-01 13:14] VITALS: BP 128/75
[2023-12-24 08:11] VITALS: BP 135/73; PULSE 109
[2024-01-01 08:30] VITALS: BP 137/75; PULSE 116
== END 2024-01-01 23:59 | disposition home or self-care (01) ==
LOC: ANHOBOP 07:30
PROVIDERS: Visit Provider Advanced Practice Midwife
DX: O36.8120 Decreased fetal movements, second trimester, not applicable or unspecified (principal); Z3A.25 25 weeks gestation of pregnancy; Z3A.37 37 weeks gestation of pregnancy; Z3A.38 38 weeks gestation of pregnancy
CPT/HCPCS: 59025

== ENCOUNTER 2024-01-02 04:50 | Inpatient (IN) | payer BC, SELFPAY ==
[2024-01-02] VITALS (98 sets, daily range): BP systolic 78–146; BP diastolic 25–115; PULSE 82–163; TEMP 36.4–37.1; O2SAT 92–100; BMI 58.2
--- NOTE | ~2024-01-02 | XR_ITS ---
Supine and upright views of the abdomen Clinical history: Status post , joint cannot Findings: Bowel gas pattern is nonspecific. No evidence for obstruction or free air. No abnormal mass lesion or calcification is seen. Osseous structures are intact. Impression: No significant abnormality is seen. No radiopaque foreign body evident. Reviewed, dictated and finalized at [facility]. Impression: No significant abnormality is seen. No radiopaque foreign body evident.
[2024-01-02 05:44] LABS: Basophils Percent Auto 0.2 % (0.2-1.2); Eosinophils Absolute Auto 0.2 K/mm3 (0-0.3); Eosinophils Percent Auto 1.5 % (0-4.4); Hematocrit 37.1 % (37.0-47.0); Hemoglobin 12.2 g/dL (12.0-15.0); Immature Granulocyte Absolute 0.04 K/mm3 (0.00-0.031); Immature Granulocyte Percent A 0.4 % (0-0.5); Lymphocytes Absolute Auto 1.63 K/mm3 (0.9-3.2); Lymphocytes Percent Auto 15.7 % (18.3-44.2); Mean Corpuscular HGB Conc 32.9 g/dl (32-36); Mean Corpuscular Hemoglobin 29.6 pg (26-34); Mean Platelet Volume 11.3 fl (7.4-10.4); Monocytes Absolute Auto 0.7 K/mm3 (0.1-0.6); Monocytes Percent Auto 6.4 % (2.6-8.5); Neutrophils Absolute Auto 7.9 K/mm3 (1.3-6.7); Neutrophils Percent Auto 75.8 % (45.5-73.1); Platelet Count Result 192 k/mm3 (150-375); Red Blood Count 4.12 M/mm3 (4.2-5.4); Red Cell Distribution Width 15.4 % (11.5-14.5); White Blood Count 10.4 K/mm3 (4.5-10.0)
--- NOTE | 2024-01-02 05:47 | ADMGEN ---
This patient, Barbara Gordon, was admitted to Labor/Delivery/Recovery 106-00. Patient/family oriented to hospital policies and general routines including ID bracelet, bed and alarms, visiting hours, pain management, procedures, bathroom and other care routines, personal items, smoking policy, room service/diet, and visiting hours. Information on how to activate the Rapid Response Team has been discussed. Patient/Family are encouraged to report perceived risks to care and to ask questions if they do not understand what they are told or what they should do.
[2024-01-02 05:55] LABS: Alanine Aminotransferase 20 U/L (6-35); Albumin Level 3.2 g/dL (3.5-5.1); Alkaline Phosphatase 114 U/L (38-126); Anion Gap 6 mmol/L (8-16); Aspartate Amino Transferase 22 U/L (14-36); Bilirubin,Total 0.3 mg/dL (0.2-1.3); Blood Urea Nitrogen 10 mg/dL (7-17); Calcium 9.4 mg/dL (8.4-10.2); Carbon Dioxide 20 mmol/L (22-30); Chloride 108 mmol/L (98-107); Estimated Glomerular Filt Rate > 60; Glucose 113 mg/dL (65-110); Potassium 3.6 mmol/L (3.4-5.0); Sodium 134 mmol/L (137-145)
[2024-01-02] MEDS: AMPICILLIN 2 GM/NS 100 ML 2 GM/100 ML BAG IVPB (06:23)
[2024-01-02] MEDS: OXYTOCIN 30 UNITS/NS 500 ML 30 UNITS/500 ML BAG IV CONT (06:25)
[2024-01-02] MEDS: LACTATED RINGERS 1,000 ML 125 ML IV CONT ×3 (06:26→19:08)
--- NOTE | 2024-01-02 09:22 | WPDOBADMIT ---
Obstetrics - Admit Note Admission Note: record reviewed. No pertinent additions to the history and/or any subsequent changes in the physical findings that are not consistent with the expected course of the were found. Additions to the history and/or subsequent changes in the physical findings follow. None. Pt is admitted for IOL due to GDMA2.
[2024-01-02 09:33] LABS: Glucose Point of Care 68 mg/dl (65-105)
--- NOTE | 2024-01-02 10:15 | PM.OBPNLAB ---
Pain Control Date/time seen: 01/02/24 10:05 Pain control: tolerating well Comments: Feeling occasional abdominal cramping Pelvic Exam Dilation (cm): 1 (FT, unable to palpate through internal os) Effacement (%): 25 station: -4 Amniotic membrane status: Intact Comments: Unable to feel presenting part Contractions Monitor mode: External Contraction frequency: 3 Contraction duration: 60 (60-100) Contraction pattern: Regular Contraction phase: Resting Contraction intensity: Mild Status status: Category l Comments: + accelerations Assessment and Plan Pitocin rate (mU/min): 12 Plan: continuous present management
[2024-01-02] MEDS: AMPICILLIN 1 GM/NS 50 ML 1 GM/50 ML BAG IVPB ×3 (10:32→18:31)
--- NOTE | 2024-01-02 10:50 | PM.OBPNLAB ---
Pain Control Date/time seen: 01/02/24 10:45 Pain control: tolerating well Assessment and Plan Comments: CNM at bedside. Limited bedside ultrasound performed. Fetus vertex. Continue IOL.
[2024-01-02 11:43] LABS: Glucose Point of Care 79 mg/dl (65-105)
--- NOTE | 2024-01-02 15:02 | WPDANESEPP ---
Anes - Eval Pre Procedure Procedure: labor epidural Date/Time: 01/02/24 15:02 Surgeon: Sanjuanita Preop Diagnosis: Pain during labor Pre Op Diagnosis: IOL Patient Data Age: 33 Gender: F Height: 1.63 m Weight: 154 kg Last Vital Signs Temp 36.4 C 01/02/24 12:00 Pulse 94 01/02/24 15:02 BP 102/78 01/02/24 15:02 O2 Del Method Room Air 01/02/24 05:37 Allergies Allergy/AdvReac Type Severity Reaction Status Date / Time No Known Allergies Allergy Verified 01/02/24 05:53 Home Medications Medication Instructions Recorded Confirmed Type ergocalciferol (vitamin D2) 1,250 1,250 mcg PO WEEKLY 04/12/21 01/02/24 History mcg (50,000 unit) capsule (Vitamin D2) metformin 500 mg tablet 1,000 mg PO BID 04/12/21 01/02/24 History prenat.vits,em,oqi-cirg-jempr 1 tablet PO DAILY 04/12/21 01/02/24 History aspirin 81 mg capsule 81 mg PO DAILY 10/15/23 01/02/24 History insulin NPH isoph U-100 human 100 7 unit subcut HS 01/01/24 01/02/24 History unit/mL subcutaneous suspension (Novolin N NPH U-100 Insulin isophane) Laboratory Tests 01/02/24 01/02/24 01/02/24 05:27 09:29 11:37 WBC 10.4 H K/mm3 (4.5-10.0) RBC 4.12 L M/mm3 (4.2-5.4) Hgb 12.2 g/dL (12.0-15.0) Hct 37.1 % (37.0-47.0) MCV 90.0 fl (80-100) MCH 29.6 pg (26-34) MCHC 32.9 g/dl (32-36) RDW 15.4 H % (11.5-14.5) Plt Count 192 k/mm3 (150-375) MPV 11.3 H fl (7.4-10.4) Immature Gran % (Auto) 0.4 % (0-0.5) Neut % (Auto) 75.8 H % (45.5-73.1) Lymph % (Auto) 15.7 L % (18.3-44.2) [place] % (Auto) 6.4 % (2.6-8.5) Eos % (Auto) 1.5 % (0-4.4) Baso % (Auto) 0.2 % (0.2-1.2) Lymph # (Auto) 1.63 K/mm3 (0.9-3.2) [place] # (Auto) 0.7 H K/mm3 (0.1-0.6) Eos # (Auto) 0.2 K/mm3 (0-0.3) Baso # (Auto) 0.0 K/mm3 (0.0-0.1) Abs Immat Gran (auto) 0.04 H K/mm3 (0.00-0.031) Absolute Neuts (auto) 7.9 H K/mm3 (1.3-6.7) Absolute Nucleated RBC 0.0 K/mm3 (0.0-0.012) Nucleated RBC % 0.0 % (0.0-0.2) Sodium 134 L mmol/L (137-145) Potassium 3.6 mmol/L (3.4-5.0) Chloride 108 H mmol/L (98-107) Carbon Dioxide 20 L mmol/L (22-30) Anion Gap 6 L mmol/L (8-16) BUN 10 mg/dL (7-17) Creatinine 0.60 L mg/dL (0.7-1.0) Estim Creat Clear Calc Not Reportable Estimated GFR > 60 (59 - ) Glucose 113 H mg/dL (65-110) POC Capillary Glucose 68 mg/dl 79 mg/dl (65-105) (65-105) Calcium 9.4 mg/dL (8.4-10.2) Total Bilirubin 0.3 mg/dL (0.2-1.3) AST 22 U/L (14-36) ALT 20 U/L (6-35) Alkaline Phosphatase 114 U/L (38-126) Total Protein 6.0 L g/dL (6.3-8.2) Albumin 3.2 L g/dL (3.5-5.1) RPR Pending Blood Type O Negative Antibody Screen Negative Patient hx anesthesia problems: none Family hx anesthesia problems: none Results Review: All pre-operative results and documents have been reviewed as part of the pre-operative evaluation. [facility] Past Medical History Medical History IUP (intrauterine ), incidental Obesity (BMI 30-39.9) PIH ( induced hypertension) Family History Family History Father Diabetes mellitus Bladder cancer Throat cancer Mother Cervical cancer Diabetes mellitus Grandparent Breast cancer in female Diabetes mellitus Social History Social History Smoking status: Never smoker Substance use: never Do You Feel Safe in your Home?: Yes Lack of Transport
[2024-01-02 15:52] LABS: Glucose Point of Care 67 mg/dl (65-105)
[2024-01-02 16:25] LABS: Glucose Point of Care 90 mg/dl (65-105)
--- NOTE | 2024-01-02 16:32 | PM.OBPNLAB ---
Pain Control Date/time seen: 01/02/24 16:15 Pain control: tolerating well and epidural Pelvic Exam Dilation (cm): 6 (FT, unable to palpate through internal os) Effacement (%): 90 station: -4 Amniotic membrane status: Intact Contractions Monitor mode: External Contraction frequency: 3 Contraction pattern: Regular Contraction phase: Resting Contraction intensity: Moderate Status status: Category ll Comments: Reassured by moderate variability and accelerations. Assessment and Plan Assessment: active labor Comments: CNM at bedside. During SVE, BBOW noted. Gentle pressure applied to palpate for head and ROM occurred. A copious amount of clear amniotic fluid was returned. A firm part was presenting but CNM unable to palpate enough of of the part to determine if it was a head. Bedside US performed by CNM and presenting part noted to be head. Discussed plan of care with pt and her S.O. Anticipate vaginal . Dr. Gann updated.
[2024-01-02 18:15] LABS: Glucose Point of Care 64 mg/dl (65-105)
--- NOTE | 2024-01-02 18:54 | PM.OBPNLAB ---
Pain Control Date/time seen: 01/02/24 18:54 Pain control: tolerating well and epidural Pelvic Exam Dilation (cm): 8 (8.5, remaining cervix is anterior and on pt's left) Effacement (%): 90 station: -1 Amniotic membrane status: Ruptured Contractions Monitor mode: Internal Contraction frequency: 3 (2-3) Contraction duration: 60 (60-90) Contraction pattern: Regular Contraction phase: Resting Contraction intensity: Moderate Status status: Category ll Assessment and Plan Assessment: induction ongoing Plan: continuous present management
[2024-01-02] MEDS: ONDANSETRON INJ 4 MG/2 ML VIAL IV PUSH (19:36)
--- NOTE | 2024-01-02 20:11 | PM.OBPNLAB ---
Pain Control Date/time seen: 01/02/24 20:08 Pain control: tolerating well and epidural Pelvic Exam Dilation (cm): 7 Effacement (%): 90 station: -1 Amniotic membrane status: Ruptured Contractions Monitor mode: Internal Contraction frequency: 3 (2-3) Contraction pattern: Irregular Contraction phase: Resting Contraction intensity: Strong/Firm Status status: Category ll Assessment and Plan Pitocin rate (mU/min): 12 Assessment: induction ongoing
--- NOTE | 2024-01-02 20:12 | PM.IMHP ---
H&P: HPI History of Present Illness Date/Time: 01/02/24 20:12 Chief Complaint: Induction of labor Narrative: Barbara is a 33 y.o. at 39 weeks gestation. She is undergoing an IOL due to GDMA2 which was diagnosed late in . She initially passed her one hour GTT but was found to have a fetus in the 90% in the 3rd trimester. Her is complicated by PCOS, anxiety, obesity, and positive GBS. Review of Systems Review of Systems: All systems reviewed & are unremarkable except as noted in HPI and below PMFSH Past Medical History Medical History IUP (intrauterine ), incidental Obesity (BMI 30-39.9) PIH ( induced hypertension) Family History Family History Father Diabetes mellitus Bladder cancer Throat cancer Mother Cervical cancer Diabetes mellitus Grandparent Breast cancer in female Diabetes mellitus Social History Social History Smoking status: Never smoker Substance use: never Do You Feel Safe in your Home?: Yes Lack of Transportation: YES Lack of Food: Never True Current Housing: I Have Housing Concerned About Future Housing: No Difficulty Paying Gas/Electric Bills: No Difficulty Paying for Meds: No Currently Unemployed: No Education: Associate Degree Difficulty w/ Childcare or Family Care: No Spiritual care concerns: No Meds Home Medications and Allergies Home Medications Medication Instructions Recorded Confirmed Type ergocalciferol (vitamin D2) 1,250 1,250 mcg PO WEEKLY 04/12/21 01/02/24 History mcg (50,000 unit) capsule (Vitamin D2) metformin 500 mg tablet 1,000 mg PO BID 04/12/21 01/02/24 History prenat.vits,em,ree-wwff-wfyhk 1 tablet PO DAILY 04/12/21 01/02/24 History aspirin 81 mg capsule 81 mg PO DAILY 10/15/23 01/02/24 History insulin NPH isoph U-100 human 100 7 unit subcut HS 01/01/24 01/02/24 History unit/mL subcutaneous suspension (Novolin N NPH U-100 Insulin isophane) Allergies Allergy/AdvReac Type Severity Reaction Status Date / Time No Known Allergies Allergy Verified 01/02/24 05:53 Vital Signs Vital Signs - 24 hr 01/02/24 05:21 01/02/24 06:37 01/02/24 07:02 Temperature Pulse Rate 120 H 104 H 101 H Blood Pressure 126/64 140/83 78/31 L Pulse Oximetry Oxygen Delivery 01/02/24 07:32 01/02/24 08:01 01/02/24 08:00 Temperature 97.9 F Pulse Rate 92 87 Blood Pressure 133/79 137/86 Pulse Oximetry Oxygen Delivery 01/02/24 09:32 01/02/24 09:39 01/02/24 10:01 Temperature Pulse Rate 88 100 101 H Blood Pressure 146/115 H 145/88 H 136/83 Pulse Oximetry Oxygen Delivery 01/02/24 10:31 01/02/24 11:01 01/02/24 11:31 Temperature Pulse Rate 98 93 91 Blood Pressure 139/77 124/77 135/88 Pulse Oximetry Oxygen Delivery 01/02/24 12:01 01/02/24 12:00 01/02/24 12:31 Temperature 97.6 F Pulse Rate 89 91 Blood Pressure 116/52 L 117/58 L Pulse Oximetry Oxygen Delivery 01/02/24 13:31 01/02/24 14:32 01/02/24 14:34 Temperature Pulse Rate 94 92 95 Blood Pressure 132/90 117/57 L 130/92 H Pulse Oximetry Oxygen Delivery 01/02/24 15:02 01/02/24 15:14 01/02/24 15:16 Temperature Pulse Rate 94 Blood Pressure 102/78 Pulse Oximetry 100 98 Oxygen Delivery 01/02/24 15:19 01/02/24 15:29 01/02/24 15:31 Temperature Pulse Rate 84 107 H Blood Pressure 121/77 111/54 L Pulse Oximetry 97 92 Oxygen Delivery 01/02/24 15:33 01/02/24 15:34 01/02/24 15:34 Temperature Pulse Rate 105 H Blood Pressure 136/80 Pulse Oximetry 96 98 Oxygen Delivery 01/02/24 15:35 01/02/24 15:37 01/02/24 15:39 Temperature Pulse Rate 102 H 100 105 H Blood Pressure 138/78 140/76 142/69 H Pulse Oximetry 97 Oxygen Delivery
[2024-01-02 20:13] LABS: Glucose Point of Care 75 mg/dl (65-105)
[2024-01-02] MEDS: ceFAZolin SODIUM 1 GM VIAL (22:52)
[2024-01-03] VITALS (38 sets, daily range): BP systolic 108–140; BP diastolic 56–80; PULSE 90–119; RESP 16–20; TEMP 36.6–36.9; O2SAT 89–96
[2024-01-03] MEDS: AZITHROMYCIN 500 MG/NS 250 ML 500 MG/250 ML BAG 250 MG (00:10)
--- NOTE | 2024-01-03 00:48 | P.PNOB_ITS ---
Pain Control Date/time seen: 01/03/24 00:48 Comments: At [id number], CNM received call from L&D. Pt complete and will begin pushing. CNM enroute to hospital.
--- NOTE | 2024-01-03 00:48 | PM.OBPNLAB ---
Pain Control Date/time seen: 01/03/24 00:48 Comments: At [id number], CNM received call from L&D. Pt complete and will begin pushing. CNM enroute to hospital.
--- NOTE | 2024-01-03 00:55 | W.PM.PROC2 ---
Procedure Note - Detailed Date of Procedure 01/03/24 Pre-op Diagnosis IUP 39 wks GDMA2 complete and pushing cord prolapse/ bradycardia/unstable lie Post-op Diagnosis Other (Same plus uterine rupture) Procedure Performed Exploratory laparotomy repair of uterine rupture Surgeon Claudia Gann MD Anesthesia Epidural Findings male in the abdominal cavity in the double footling breech presentation vertical uterine rupture running from the level of the right tubal insertion to the vaginal sulcus approximately 2cm from the uterine vessels Apgars are 2 [id number] 3 [id number] 3 [id number] weight is pending at the time of this discharge Description of Procedure I was called at 10:43 p.m. while at home. Report given that heart tones had been down for 3minutes to the 80s and were not coming up. Report on my way to the hospital from [facility] was that there is a cord prolapse and a foot presenting with the vertex. On my arrival to the hospital the patient is in the operating room and Patrica GUNDERSON is holding up the cord vaginally. Anesthesia had already dosed her epidural and the patient was comfortable. The patient had previously been prepped minimally but on my arrival the nurse was attempting to find heart tones with a monitor. The patient had additional Betadine poured over her abdomen and she was quickly draped. A Pfannenstiel skin incision was made with a scalpel and carried down to the underlying layer of fascia which is nicked in the midline and extended laterally with Munoz scissors. [facility] was used to tent the fascia which was then nicked and dissected off using sharp dissection. On palpating the abdomen I felt fetus immediately under my hands. The peritoneum was quickly entered and the incision extended laterally with blunt traction. The infant's right foot was grasped and delivered through the incision and palpating the left leg was found and delivered through the incision. The infant was delivered to the scapula and then rotated to deliver the right arm. The infant was rotated to deliver the left arm. The was extended on the abdomen to deliver the head. The cord was quickly cut and clamped and the infant handed to the waiting nursery nurse and wire basket maker. The placenta delivered spontaneously and cord gases and blood were sent. The uterus was attempted to be exteriorized but was not successful. An Jeremías O retractor was placed and the incision grasped with Allis clamps on each edge of the incision. The uterine incision was closed using 2 layers of 0 Monocryl in a running locked fashion with the 2nd layer imbricating. I did not have good visualization the distal portion the incision and decision was made to attempt to exteriorized the uterus again. The Jeremías O retractor was removed. The uterus was exteriorized with difficulty. Above the muscular laceration there was an extension of the serosal tear above the level of the tube approximately 2cm from the tubal insertion point. This was closed in 2 layers of 0 Monocryl. The distal portion of the tear extended into the vagina. The bladder flap was created using Metzenbaum scissors. And the bladder blade was placed. Allis clamps were used to identify the edges of the tear to the apex. This portion was closed using 0 Monocryl in a running locked fashion with a 2nd layer to imbricate. The cul-de-sac was irrigated with minimal clots removed. The posterior surface of the uterus appears normal. The serosa the lower uterine segment had a 2cm detached fragment held only by a thin connecting point. This was cross clamped with a Peon and excised. The pedicle was tied off using 0 Monocryl in a Ion stitch with good hemostasis. The uterus was returned to the abdomen with difficulty. The serosa near the uterine vein was bleeding upon inspection. This was tied off using 0 Monocryl with 2 sutures of 0 Monocryl in an inte
--- NOTE | 2024-01-03 01:18 | PM.OBDSVD ---
DS: Admitting Diagnosis Discharge Date 01/05/24 Admitting Diagnosis intrauterine at 39 weeks gestational diabetes insulin requiring medical induction of labor DS: Discharge Diagnosis Discharge Diagnosis (1) Spontaneous rupture of uterus during labor: Code(s): O71.1 - Rupture of uterus during labor Status: Acute OB - DS: Summary OB Procedures : NST and Ultrasound OB Procedures Intrapartum: Other ( exploratory laparotomy with closure of ruptured uterus) OB Procedures: : None Peripartum Data Procedures: delivery method uterine rupture exploratory laparotomy Status at Discharge Functional status at discharge: independent ambulation Overall status at discharge: patient is progressing back to baseline Time Spent with Patient Time attestation: Total time spent providing and/or coordinating discharge services: DS: Data Data Completed and Pending Labs on day of discharge: Labs from last 24 hours 01/02/24 01/02/24 01/02/24 20:10 18:11 16:22 WBC RBC Hgb Hct MCV MCH MCHC RDW Plt Count MPV Immature Gran % (Auto) Neut % (Auto) Lymph % (Auto) [place] % (Auto) Eos % (Auto) Baso % (Auto) Lymph # (Auto) [place] # (Auto) Eos # (Auto) Baso # (Auto) Abs Immat Gran (auto) Absolute Neuts (auto) Absolute Nucleated RBC Nucleated RBC % Sodium Potassium Chloride Carbon Dioxide Anion Gap BUN Creatinine Estim Creat Clear Calc Estimated GFR Glucose POC Capillary Glucose 75 64 L 90 Calcium Total Bilirubin AST ALT Alkaline Phosphatase Total Protein Albumin RPR Blood Type Antibody Screen 01/02/24 01/02/24 01/02/24 15:50 11:37 09:29 WBC RBC Hgb Hct MCV MCH MCHC RDW Plt Count MPV Immature Gran % (Auto) Neut % (Auto) Lymph % (Auto) [place] % (Auto) Eos % (Auto) Baso % (Auto) Lymph # (Auto) [place] # (Auto) Eos # (Auto) Baso # (Auto) Abs Immat Gran (auto) Absolute Neuts (auto) Absolute Nucleated RBC Nucleated RBC % Sodium Potassium Chloride Carbon Dioxide Anion Gap BUN Creatinine Estim Creat Clear Calc Estimated GFR Glucose POC Capillary Glucose 67 79 68 Calcium Total Bilirubin AST ALT Alkaline Phosphatase Total Protein Albumin RPR Blood Type Antibody Screen 01/02/24 05:27 WBC 10.4 H RBC 4.12 L Hgb 12.2 Hct 37.1 MCV 90.0 MCH 29.6 MCHC 32.9 RDW 15.4 H Plt Count 192 MPV 11.3 H Immature Gran % (Auto) 0.4 Neut % (Auto) 75.8 H Lymph % (Auto) 15.7 L [place] % (Auto) 6.4 Eos % (Auto) 1.5 Baso % (Auto) 0.2 Lymph # (Auto) 1.63 [place] # (Auto) 0.7 H Eos # (Auto) 0.2 Baso # (Auto) 0.0 Abs Immat Gran (auto) 0.04 H Absolute Neuts (auto) 7.9 H Absolute Nucleated RBC 0.0 Nucleated RBC % 0.0 Sodium 134 L Potassium 3.6 Chloride 108 H Carbon Dioxide 20 L Anion Gap 6 L BUN 10 Creatinine 0.60 L Estim Creat Clear Calc Not Reportable Estimated GFR > 60 Glucose 113 H POC Capillary Glucose Calcium 9.4 Total Bilirubin 0.3 AST 22 ALT 20 Alkaline Phosphatase 114 Total Protein 6.0 L Albumin 3.2 L RPR Pending Blood Type O Negative Antibody Screen Negative Discharge Plan Discharge Attending physician on discharge: Claudia Gann Consulting providers: [facility] Discharging Clinician: Claudia Gann Anticipated Discharge Date/Time: 01/06/24 01:19 Patient Disposition: Home, Self-Care Activity: may shower, may drive after 2 weeks and pelvic rest Diet: regular Wound Care Instructions: incision open to air Patient Instructions: Antibiotic Form Stand Alone Forms: General Discharge Information Follow-up/Referrals: Claudia Gann MD [Physician] - 1 Week ( and 6 weeks) Discharge Medicat
[2024-01-03] MEDS: HYDROmorphone HCL INJ (*CRX) 1 MG/ML SYR 0.5 MG IV PUSH (02:23)
--- NOTE | 2024-01-03 03:20 | OBPPTRN ---
Patient transferred to post room #285 via stretcher. Support person - Sister present. ISAK Salgado en route to [facility] to accompany baby post transfer. Oriented to unit, room, information board, admission packet and security measures. Patient verbalizes understanding.
--- NOTE | 2024-01-03 04:01 | OBPPTRN ---
Patient transferred to post room #285 via stretcher. Support person- Sister present. Oriented to unit, room, information board, admission packet and security measures. Patient verbalizes understanding.
--- NOTE | 2024-01-03 04:40 | PC.NURSE ---
Provided patient with breast pump due to patients desire to breastfeed and being from baby. Assembled pump for patient and educated on use. Patient pumped for 15 minutes with no output. Encouraged patient this is normal and pumping q2-3 hours promotes milk production.
[2024-01-03] MEDS: DEXTROSE 5%/0.45% SOD CHL 1,000 ML 125 ML IV CONT (05:34)
--- NOTE | 2024-01-03 07:44 | PM.OBPNVD ---
OB - PN: Subj Subjective Date/time seen: 01/03/24 07:44 Patient comments: no complaints and pain well controlled baby status: NICU OB - PN: Obj Data Labs 01/02/24 05:27 01/02/24 05:27 Labs: Laboratory Results - last 24 hr 01/02/24 01/02/24 01/02/24 05:27 09:29 11:37 POC Capillary Glucose 68 79 Antibody Screen Negative 01/02/24 01/02/24 01/02/24 15:50 16:22 18:11 POC Capillary Glucose 67 90 64 L Antibody Screen 01/02/24 20:10 POC Capillary Glucose 75 Antibody Screen Imaging Radiologist's impression: Impressions Abdomen X-Ray 01/03/24 05:51 Impression: No significant abnormality is seen. No radiopaque foreign body evident. OB - PN A/P Plan day: 0 Comments: Advance to routine csection orders. Check cbc now Pass this afternoon if stable and detached from iv/chowdhury Time Spent With Patient Time: Total time spent is greater than 50% in coordination of care (as documented) at patient's floor/unit and/or counseling patient: Exam Narrative: inc c/d/i : Bimanual exam- vagina & uterus: other (Uterus firm, nt @U)
--- NOTE | 2024-01-03 08:28 | WPDANLDPN2 ---
Anes-Prog Note L&D Date/Time: 01/03/24 08:28 Comfortable throughout: section Neuraxial method: epidural Epidural/Spinal procedure site: clean & non-tender Neuro status: Neuro function grossly intact. Cardiovascular status: normal Respiratory status: normal Airway patency: baseline Mental status: baseline Post-Op hydration status: normal Vital Signs: Last Vital Signs Temp 36.6 C 01/03/24 03:40 Pulse 99 01/03/24 03:40 Resp 18 01/03/24 03:40 BP 140/79 01/03/24 03:40 Pulse Ox 92 01/03/24 03:40 O2 Del Method Room Air 01/03/24 03:40 Pain score (VAS): 210 I/O: Intake & Output 01/02/24 01/03/24 01/03/24 23:59 07:59 15:59 Intake Total 1000 Output Total 1900 Balance 1000 -1900 Post-procedural complaints: none Patient feedback: Patient satisfied with anesthetic care.
--- NOTE | 2024-01-03 08:28 | WPDANLDNPN2 ---
Anes-Prog Note L&D-Neuraxial Date/Time: 01/03/24 08:28 Neuraxial medications: epidural PF morphine Opiod-related complaints: pruritis Patient feedback: Patient satisfied with post-operative pain management.
[2024-01-03] MEDS: SIMETHICONE 80 MG TAB.CHEW PO ×3 (08:34→19:03)
[2024-01-03] MEDS: MULTIVIT/MIN/PREN/FOL AC/IRON TABLET 1 TAB PO (08:34)
[2024-01-03] MEDS: DOCUSATE SODIUM 100 MG CAPSULE PO ×2 (08:34→19:03)
[2024-01-03] MEDS: HYDROcodone/acetaminophen (*CRX) 5-325 MG TABLET 1 TAB PO (08:34)
[2024-01-03] MEDS: ACETAMINOPHEN 325 MG TABLET 650 MG PO ×2 (08:34→19:03)
[2024-01-03] MEDS: POLYSACCHARIDE IRON COMPLEX 150 MG CAPSULE PO ×2 (08:34→19:03)
[2024-01-03 08:50] LABS: Hematocrit 33.8 % (37.0-47.0); Hemoglobin 10.7 g/dL (12.0-15.0); Mean Corpuscular HGB Conc 31.7 g/dl (32-36); Mean Corpuscular Hemoglobin 29.8 pg (26-34); Mean Corpuscular Volume 94.2 fl (80-100); Mean Platelet Volume 11.5 fl (7.4-10.4); Platelet Count Result 177 k/mm3 (150-375); Red Blood Count 3.59 M/mm3 (4.2-5.4); Red Cell Distribution Width 15.6 % (11.5-14.5); White Blood Count 20.4 K/mm3 (4.5-10.0)
[2024-01-03] MEDS: diphenhydrAMINE HCl CAP 25 MG CAPSULE (10:20)
[2024-01-03] MEDS: RHO(D) IMMUNE GLOBULIN 300 MCG/2 ML SYRINGE IM (11:47)
[2024-01-03] MEDS: IBUPROFEN 600 MG TABLET PO ×2 (13:15→19:03)
[2024-01-03] MEDS: HYDROcodone/acetaminophen (*CRX) 10-325 MG TABLET 1 TAB PO ×2 (13:16→19:03)
--- NOTE | 2024-01-03 14:15 | PC.NURSE ---
Patient to [facility] NICU to see infant. Therapeutic leave pass signed by patient and her mother.
[2024-01-03 15:51] LABS: Rapid Plasma Reagin Non-Reactive (NonReactive)
--- NOTE | 2024-01-03 18:05 | PC.NURSE ---
Patient returned from visiting baby at [facility] with family at bedside.
[2024-01-04] MEDS: HYDROcodone/acetaminophen (*CRX) 10-325 MG TABLET 1 TAB PO ×4 (01:19→19:23)
[2024-01-04 01:20] VITALS: BP 120/82; PULSE 104; RESP 18; TEMP 36.8; O2SAT 96
[2024-01-04] MEDS: IBUPROFEN 600 MG TABLET PO ×4 (01:20→19:58)
[2024-01-04] MEDS: ACETAMINOPHEN 325 MG TABLET 650 MG PO ×2 (01:20→12:38)
[2024-01-04 06:58] VITALS: BP 142/89; PULSE 108; RESP 20; TEMP 36.5; O2SAT 92
[2024-01-04] MEDS: DOCUSATE SODIUM 100 MG CAPSULE PO ×2 (07:01→19:23)
[2024-01-04] MEDS: MULTIVIT/MIN/PREN/FOL AC/IRON TABLET 1 TAB PO (07:01)
--- NOTE | 2024-01-04 07:46 | PM.OBPNVD ---
OB - PN: Subj Subjective Date/time seen: 01/04/24 07:46 Interval history: Tolerating diet, voiding, and ambulating Patient comments: no complaints, pain well controlled and incisional pain [place] baby status: NICU OB - PN: Obj Data Labs 01/03/24 08:41 01/02/24 05:27 Labs: Laboratory Results - last 24 hr 01/02/24 01/03/24 05:27 08:41 WBC 20.4 H RBC 3.59 L Hgb 10.7 L Hct 33.8 L MCV 94.2 MCH 29.8 MCHC 31.7 L RDW 15.6 H Plt Count 177 MPV 11.5 H RPR Non-reactive Blood Type O Negative Antibody Screen Negative Screen Negative Baby's Blood Type A pos Baby's DANIELA Negative Doses of RhIg Required 1 OB - PN A/P Plan day: 1 Plan: routine care and other (may go on pass to [facility]) Comments: No signs or symptoms of infection Time Spent With Patient Time: Total time spent is greater than 50% in coordination of care (as documented) at patient's floor/unit and/or counseling patient: Exam Narrative: inc c/d/i : Bimanual exam- vagina & uterus: other (Uterus firm, nt @U)
[2024-01-04 07:51] LABS: Basophils Percent Auto 0.2 % (0.2-1.2); Eosinophils Absolute Auto 0.3 K/mm3 (0-0.3); Eosinophils Percent Auto 2.1 % (0-4.4); Hematocrit 29.8 % (37.0-47.0); Hemoglobin 9.6 g/dL (12.0-15.0); Immature Granulocyte Absolute 0.08 K/mm3 (0.00-0.031); Immature Granulocyte Percent A 0.5 % (0-0.5); Lymphocytes Absolute Auto 1.09 K/mm3 (0.9-3.2); Lymphocytes Percent Auto 7.3 % (18.3-44.2); Mean Corpuscular HGB Conc 32.2 g/dl (32-36); Mean Corpuscular Hemoglobin 29.5 pg (26-34); Mean Corpuscular Volume 91.7 fl (80-100); Mean Platelet Volume 11.6 fl (7.4-10.4); Monocytes Percent Auto 6.7 % (2.6-8.5); Neutrophils Absolute Auto 12.4 K/mm3 (1.3-6.7); Neutrophils Percent Auto 83.2 % (45.5-73.1); Platelet Count Result 176 k/mm3 (150-375); Red Blood Count 3.25 M/mm3 (4.2-5.4); Red Cell Distribution Width 15.9 % (11.5-14.5)
[2024-01-04] MEDS: SIMETHICONE 80 MG TAB.CHEW PO ×2 (12:37→19:58)
--- NOTE | 2024-01-04 13:28 | PC.NURSE ---
Pt left on pass to visit [facility] at [facility], instructed to return by 1930.
[2024-01-04] MEDS: POLYSACCHARIDE IRON COMPLEX 150 MG CAPSULE PO (19:23)
[2024-01-04] MEDS: HYDROcodone/acetaminophen (*CRX) 5-325 MG TABLET 1 TAB PO (19:59)
[2024-01-04 21:44] VITALS: BP 146/71; PULSE 116; RESP 20; TEMP 37.1; O2SAT 97
[2024-01-05] MEDS: IBUPROFEN 600 MG TABLET PO ×2 (02:05→09:53)
[2024-01-05] MEDS: HYDROcodone/acetaminophen (*CRX) 5-325 MG TABLET 1 TAB PO ×2 (02:05→11:51)
[2024-01-05] MEDS: ACETAMINOPHEN 325 MG TABLET 650 MG PO ×2 (02:05→09:54)
--- NOTE | 2024-01-05 06:05 | PM.OBPNVD ---
OB - PN: Subj Subjective Date/time seen: 01/05/24 06:05 Interval history: Tolerating diet, voiding, and ambulating Patient comments: no complaints [place] baby status: NICU OB - PN: Obj Data Labs 01/04/24 07:43 01/02/24 05:27 Labs: Laboratory Results - last 24 hr 01/04/24 07:43 WBC 15.0 H RBC 3.25 L Hgb 9.6 L Hct 29.8 L MCV 91.7 MCH 29.5 MCHC 32.2 RDW 15.9 H Plt Count 176 MPV 11.6 H Immature Gran % (Auto) 0.5 Neut % (Auto) 83.2 H Lymph % (Auto) 7.3 L [place] % (Auto) 6.7 Eos % (Auto) 2.1 Baso % (Auto) 0.2 Lymph # (Auto) 1.09 [place] # (Auto) 1.0 H Eos # (Auto) 0.3 Baso # (Auto) 0.0 Abs Immat Gran (auto) 0.08 H Absolute Neuts (auto) 12.4 H Absolute Nucleated RBC 0.0 Nucleated RBC % 0.0 OB - PN A/P Plan day: 2 Plan: routine care, discharge home and follow up 6 weeks (and 1 week) Time Spent With Patient Time: Total time spent is greater than 50% in coordination of care (as documented) at patient's floor/unit and/or counseling patient: Exam Narrative: inc c/d/i fundus firm nt
[2024-01-05 08:40] VITALS: BP 122/62; PULSE 104; RESP 18; TEMP 36.2; O2SAT 99
--- NOTE | 2024-01-05 09:00 | PC.NURSE ---
PT introductions made and plan of care discussed per post op c section, traumatic delivery, infant at [facility] , daily care activities. pumping, pain management, and pending discharge to home. PT sole recipient of such instructions and no barriers to learing identified at this time. PT received such instructions per one to one discussion, mom baby care guide and demonstrations this shift. PT verbalized understanding of such care.
[2024-01-05 09:53] VITALS: PULSE 104; RESP 18; O2SAT 99
[2024-01-05] MEDS: DOCUSATE SODIUM 100 MG CAPSULE PO (09:53)
[2024-01-05] MEDS: SIMETHICONE 80 MG TAB.CHEW PO ×2 (09:53→11:51)
[2024-01-05] MEDS: POLYSACCHARIDE IRON COMPLEX 150 MG CAPSULE PO (09:54)
[2024-01-05] MEDS: MULTIVIT/MIN/PREN/FOL AC/IRON TABLET 1 TAB PO (09:55)
--- NOTE | 2024-01-05 11:30 | PC.NURSE ---
PT received discharge instructions per protocol and verbalized understanding of such care.
--- NOTE | 2024-01-05 12:33 | PC.NURSE ---
PT discharged to home via wheelchair unaccompanied and taken to waiting car. Follow up appts confirmed
[2024-01-06 10:33] VITALS: BP 121/77; PULSE 94; RESP 18; TEMP 36.9; O2SAT 99
--- NOTE | 2024-01-10 07:48 | WPDHPUPDATE1 ---
History and Physical Update Update Date/Time: 01/10/24 07:48 History and Physical has been reviewed, including an updated exam of the patient. There are NO changes in the patient's condition. Risks, benefits, and alternatives have been discussed and questions answered. Patient agrees to proceed with procedure. Signing this 01/10/24-see my op note for actual events. This statement is not true but is required to be signed for medical records. This was an emergency and none of these things took place.
== END 2024-01-05 12:33 | disposition home or self-care (01) | DRG 786 ==
LOC: ANHLDR 01-03 01:20 → ANHOB2 01-03 03:21
PROVIDERS: Admitting Provider Obstetrics & Gynecology Gynecology; PCP Advanced Practice Midwife; Visit Provider Obstetrics & Gynecology Gynecology
PROC: (CPT 59514; principal; 2024-01-02 22:45)
DX: O24.424 Gestational diabetes mellitus in childbirth, insulin controlled (principal); O71.1 Rupture of uterus during labor; Z37.0 Single live birth; Z3A.39 39 weeks gestation of pregnancy; O99.824 Streptococcus B carrier state complicating childbirth; O32.0XX0 Maternal care for unstable lie, not applicable or unspecified; O69.0XX0 Labor and delivery complicated by prolapse of cord, not applicable or unspecified; O36.8330 Maternal care for abnormalities of the fetal heart rate or rhythm, third trimester, not applicable or unspecified; O32.8XX0 Maternal care for other malpresentation of fetus, not applicable or unspecified; O99.344 Other mental disorders complicating childbirth; F41.9 Anxiety disorder, unspecified; O99.214 Obesity complicating childbirth; E66.01 Morbid (severe) obesity due to excess calories
CPT/HCPCS: 36415; 74018; 80053; 82948; 85025; 85027; 85461; 86592; 86850; 86900; 86901; 88307; 90384; A9270; J0290; J0456; J0690; J1170; J2175; J2274; J2371; J2405; J2590; J2704; J2790; J2795; J3010; J7120

== ENCOUNTER 2024-03-17 08:55 | Outpatient (CLI) | payer BC, SELFPAY ==
[2024-03-17 09:35] LABS: Glucose Fasting 92 mg/dL
[2024-03-17 11:53] LABS: Glucose 1 Hour 129 mg/dL
[2024-03-17 12:10] LABS: Glucose 2 Hour 112 mg/dL
== END 2024-03-17 08:56 | disposition home or self-care (01) ==
PROVIDERS: PCP Advanced Practice Midwife; Visit Provider Obstetrics & Gynecology Gynecology
DX: O24.414 Gestational diabetes mellitus in pregnancy, insulin controlled (principal); Z3A.00 Weeks of gestation of pregnancy not specified
CPT/HCPCS: 36415; 82951